=== PATIENT | male | born 1985 | race Caucasian/White ===

== ENCOUNTER 2016-11-01 17:45 | Emergency (ER) | payer OTHER ==
[~2016-11-01] VITALS: Ht 167.6 cm; Wt 60.8 kg
[2016-11-01 18:48] VITALS: BP 134/77
== END 2016-11-01 18:45 | disposition home or self-care (01) ==
LOC: ER 17:52
DX: Z48.00 Encounter for change or removal of nonsurgical wound dressing (principal)
CPT/HCPCS: A4606; Z7502; Z7610